=== PATIENT | male | born 2000 | race Two or more races ===

== ENCOUNTER 2022-07-05 21:30 | Emergency (ER) | payer BC ==
[2022-07-05] MEDS ORDERED: Lidocaine 1% w/Epinephrine 1:200K 30 ML VIAL ONE (22:26)
[2022-07-05] MEDS ORDERED: Ketorolac Tromethamine 30 MG/ML VIAL ONE (22:30)
[2022-07-05] MEDS ORDERED: Boostrix 0.5 ML (Tdap) VIAL (>/=7 yrs of age) ONE (23:04)
[2022-07-05] MEDS ORDERED: Triple Antibiotic Oint 1 GM Packet ONE (23:31)
== END 2022-07-05 23:37 | disposition home or self-care (01) ==
LOC: CSHERS 21:30
DX: S01.81XA Laceration without foreign body of other part of head, initial encounter (principal); Z23 Encounter for immunization; W05.2XXA Fall from non-moving motorized mobility scooter, initial encounter
CPT/HCPCS: 12011; 90471; 90715; 96372; J1885